=== PATIENT | male | born 1975 | race Caucasian/White ===

== ENCOUNTER 2018-01-04 23:37 | Emergency (ER) | payer MEDICAID, SELFPAY ==
[2018-01-05 00:14] VITALS: BP 152/97; PULSE 97; RESP 100; TEMP 36.9; O2SAT 98; BMI 24.7
[2018-01-05 00:35] VITALS: BP 0/0; PULSE 0; RESP 0; TEMP -17.7; TEMP 0
--- NOTE | 2018-01-05 00:37 | PC.NURSE ---
dr bartholomew speaking with room 11 which is pt , pt came to door to listen then proceeded to state they would go to , pt and left AMA.
--- NOTE | 2018-01-05 00:58 | HMH.EDSKAF ---
ED Disposition Clinical Impression: Dermatitis Disposition: Home, Self-Care Condition on Discharge: Good Instructions: DI for Skin Abscess Additional Instructions: see pcp for follow up - Critical Care Critical Care Time: No Attestation: On 01/04/18, the high probability of a clinically significant, sudden or life threatening deterioration of the following system(s) required my full and direct attention, intervention and personal management. The time I documented below is in addition to time spent performing reported procedures but includes the following listed in this critical care notation. Medical Decision Making - Medical Records Medical records reviewed: Yes: I reviewed the patient's medical records. Vital Signs: 01/05/18 00:14 01/05/18 00:35 Temperature 98.5 F 0 F L Temperature Source Oral Pulse Rate 0 L Pulse Rate [Right Radial] 97 H Respiratory Rate 100 H 0 L Blood Pressure 0/0 Blood Pressure [Right Arm] 152/97 Blood Pressure Mean [Right Arm] 115 Blood Pressure Source [Right Arm] Automatic Cuff Blood Pressure Position [Right Arm] Sitting 02 Sat by Pulse Oximetry 98 Oxygen Delivery Method Room Air Room Air - Benny Inquiry Pt receiving controlled substance: No Skin/Abscess/FB HPI - General Chief complaint: Skin/Abscess/Foreign Body Stated complaint: Pain in fingers;bites on body;joints ache Time Seen by Provider: 01/05/18 00:59 Mode of Arrival: Ambulatory Source of Information: Patient, Medical Record Limitations: No Limitations Description of Symptoms (Recalled from ER Triage Doc. by RN): generalized sores. headache - History of Present Illness HPI narrative: pt with concern of parasites under skin with no known exposure but has spouse with same complaint - denied drug use - MD complaint: lesion Onset (ago): day(s) Tetanus up to date: unsure Location: generalized, head Severity: moderate - Related Data Home Medications Medication Instructions Recorded Confirmed Lisinopril [Lisinopril 20mg Tab] 20 mg PO DAILY 01/05/18 01/05/18 cloNIDine HCl [cloNIDine 0.1mg 0.1 mg PO NEEDED PRN 01/05/18 01/05/18 Tablet] Allergies Allergy/AdvReac Type Severity Reaction Status Date / Time Penicillins [PENICILLINS] Allergy Unknown Unverified 10/18/17 14:02 [facility] History I have reviewed the patient's past medical history: Yes Medical History: Denies:: Cancer, Diabetes Mellitus Type 1, Diabetes Mellitus Type 2, MRSA Amputation: No Fractures: Yes (left elbow) - Social History Smoking Status: Current some day smoker Alcohol Intake: never - Psychiatric History Expresses thoughts of harming self/others: None Suicide Plan Description: No Plan ROS Obtained: Yes All systems reviewed & no additional complaints - Constitutional Constitutional: Denies fever(s), Denies malaise - Eyes Eyes: Denies change in vision - ENT Ears, Nose, Mouth, and Throat: Denies sore throat - Cardiovascular Cardiovascular: Denies chest pain at rest - Respiratory Respiratory: No chest congestion - Gastrointestinal Gastrointestingal: Denies: abdominal pain - Genitourinary Male Genitourinary: Denies hematuria - Musculoskeletal Musculoskeletal: Denies joint pain, Denies joint swelling - Integumentary/Breasts Skin/Breast: Reports as per HPI, Denies boil, Reports lesions, Denies rash, Reports sores - Neurologic Neurologic: Denies seizure-like activity Physical Exam - General General appearance: alert - Head Head exam: normocephalic - Eye Eye exam: Present: PERRL, EOMI - ENT ENT exam: Present: mucous membranes moist - Neck Neck exam: Present: trachea midline - Respiratory Respiratory exam: Absent: respiratory distress - Cardiovascular Cardiovascular exam: Present: regular rate - Neurological Exam Neurological exam: Present: alert, oriented X3, CN II-XII intact - Psychiatric Psychiatric exam: Present: anxious - Skin Skin exam: Present: oth
--- NOTE | 2018-01-05 01:02 | ED_ITS ---
ED Disposition Clinical Impression: Dermatitis Disposition: Home, Self-Care Condition on Discharge: Good Instructions: DI for Skin Abscess Additional Instructions: see pcp for follow up - Critical Care Critical Care Time: No Attestation: On 01/04/18, the high probability of a clinically significant, sudden or life threatening deterioration of the following system(s) required my full and direct attention, intervention and personal management. The time I documented below is in addition to time spent performing reported procedures but includes the following listed in this critical care notation. Medical Decision Making - Medical Records Medical records reviewed: Yes: I reviewed the patient's medical records. Vital Signs: 01/05/18 00:14 01/05/18 00:35 Temperature 98.5 F 0 F L Temperature Source Oral Pulse Rate 0 L Pulse Rate [Right Radial] 97 H Respiratory Rate 100 H 0 L Blood Pressure 0/0 Blood Pressure [Right Arm] 152/97 Blood Pressure Mean [Right Arm] 115 Blood Pressure Source [Right Arm] Automatic Cuff Blood Pressure Position [Right Arm] Sitting 02 Sat by Pulse Oximetry 98 Oxygen Delivery Method Room Air Room Air - Benny Inquiry Pt receiving controlled substance: No Skin/Abscess/FB HPI - General Chief complaint: Skin/Abscess/Foreign Body Stated complaint: Pain in fingers;bites on body;joints ache Time Seen by Provider: 01/05/18 00:59 Mode of Arrival: Ambulatory Source of Information: Patient, Medical Record Limitations: No Limitations Description of Symptoms (Recalled from ER Triage Doc. by RN): generalized sores. headache - History of Present Illness HPI narrative: pt with concern of parasites under skin with no known exposure but has spouse with same complaint - denied drug use - MD complaint: lesion Onset (ago): day(s) Tetanus up to date: unsure Location: generalized, head Severity: moderate - Related Data Home Medications Medication Instructions Recorded Confirmed Lisinopril [Lisinopril 20mg Tab] 20 mg PO DAILY 01/05/18 01/05/18 cloNIDine HCl [cloNIDine 0.1mg 0.1 mg PO NEEDED PRN 01/05/18 01/05/18 Tablet] Allergies Allergy/AdvReac Type Severity Reaction Status Date / Time Penicillins [PENICILLINS] Allergy Unknown Unverified 10/18/17 14:02 [facility] History I have reviewed the patient's past medical history: Yes Medical History: Denies:: Cancer, Diabetes Mellitus Type 1, Diabetes Mellitus Type 2, MRSA Amputation: No Fractures: Yes (left elbow) - Social History Smoking Status: Current some day smoker Alcohol Intake: never - Psychiatric History Expresses thoughts of harming self/others: None Suicide Plan Description: No Plan ROS Obtained: Yes All systems reviewed & no additional complaints - Constitutional Constitutional: Denies fever(s), Denies malaise - Eyes Eyes: Denies change in vision - ENT Ears, Nose, Mouth, and Throat: Denies sore throat - Cardiovascular Cardiovascular: Denies chest pain at rest - Respiratory Respiratory: No chest congestion - Gastrointestinal Gastrointestingal: Denies: abdominal pain - Genitourinary Male Genitourinary: Denies hematuria - Musculoskeletal Musculoskeletal: Denies joint pain, Denies joint swelling - Integumentary/Br
== END 2018-01-05 00:35 | disposition home or self-care (01) ==
PROVIDERS: Emergency Provider Emergency Medicine; Family Provider Emergency Medicine
DX: L30.9 Dermatitis, unspecified (principal); I10 Essential (primary) hypertension; Z88.0 Allergy status to penicillin; F17.210 Nicotine dependence, cigarettes, uncomplicated
CPT/HCPCS: 99281